=== PATIENT | male | born 1970 | race Caucasian/White ===

== ENCOUNTER 2019-11-21 09:53 | Emergency (ER) | payer OTHER ==
[~2019-11-21] VITALS: Ht 180.3 cm; Wt 94.8 kg
--- NOTE | 2019-11-21 10:05 | NUR ---
PT IS IN ROOM #1A. DR HYMAN EVALUATED THE PT.
[2019-11-21] MEDS ORDERED: INFL100V IV (10:10)
--- NOTE | 2019-11-21 10:15 | NUR ---
PT WAS D/C'd TO HOME. D/C INSTRUCTIONS GIVEN TO THE PT BY DR HYMAN.
[2019-11-21 10:16] VITALS: BP 138/88
== END 2019-11-21 10:24 | disposition home or self-care (01) ==
LOC: ER 09:53
DX: R42 Dizziness and giddiness (principal); I10 Essential (primary) hypertension; K51.90 Ulcerative colitis, unspecified, without complications; Z79.899 Other long term (current) drug therapy
CPT/HCPCS: A4663